=== PATIENT | female | born 1975 | race Caucasian/White ===

== ENCOUNTER 2020-08-05 07:29 | Inpatient (IN) ==
[2020-08-02 11:02] LABS: Basophils % 0.5 % (0.0-0.8); Eosinophils # 0.1 10*3/uL (0.0-0.87); Eosinophils % 1.2 % (0.00-10.9); Hematocrit 38.9 VOL% (35.7-47.0); Hemoglobin 12.9 GM/DL (12.0-16.0); Immature Granulocytes % 0.4 %; Immature Granulocytes Absolute 0.03 #; Lymphocytes # 2.5 10*3/uL (1.4-4.0); Lymphocytes % 30.4 % (21.3-54.2); Mean Corpuscular HGB Conc 33.2 GM/DL (32-36); Mean Corpuscular Volume 83.3 FL (87-102); Mean Platelet Volume 10.3 FL (9.6-12.0); Monocytes % 4.9 % (1.7-12.7); Neutrophils % 62.6 % (38.7-73.9); Platelet Count 361 T/CUMM (130-400); Red Blood Count 4.67 MC/CUMM (3.8-5.5); Red Cell Distribution Width 13.6 % (9.3-17.3); White Blood Count 8.2 T/CUMM (4-12)
[2020-08-02 11:25] LABS: Calcium 8.7 MG/DL (8.5-10.1); Osmolality,Calculated 270.8 MOS/KG (273-304)
[~2020-08-05 07:29] MED LIST: ALVIMOPAN 12 MG CAPSULE ONE
[2020-08-05] MEDS ORDERED: LACTATED RINGERS 1,000 ML IV SCH (09:00)
[2020-08-05] MEDS ORDERED: FAMOTIDINE 20 MG TABLET PO ONE (09:42)
[2020-08-05] MEDS ORDERED: DIAZEPAM 5 MG TABLET PO ONE (09:42)
[2020-08-05] MEDS ORDERED: ALVIMOPAN 12 MG CAPSULE PO ONE (10:00)
[2020-08-05] MEDS ORDERED: MIDAZOLAM 2 MG/2 ML VIAL ONE (12:23)
[2020-08-05] MEDS ORDERED: TISSUE ADHESIVE 1 EACH APPLICATOR TOP ONE (13:49)
[2020-08-05] MEDS ORDERED: INDOCYANINE GREEN 25 MG VIAL IV ONE (13:50)
[2020-08-05] MEDS ORDERED: fentaNYL 100 MCG/2 ML VIAL ONE (14:05)
[2020-08-05] MEDS ORDERED: ROCURONIUM 50 MG/5 ML VIAL IV ONE ×2 (15:09→16:12)
[2020-08-05] MEDS ORDERED: DESFLURANE 1 UNIT/15 MINUTE INH ONE ×3 (16:12→18:07)
[2020-08-05] MEDS ORDERED: propofoL 200 MG/20 ML VIAL IV ONE (16:13)
[2020-08-05] MEDS ORDERED: LIDOCAINE 2% 5 ML VIAL ONE (16:13)
[2020-08-05] MEDS ORDERED: GLYCOPYRROLATE 0.4 MG/2 ML VIAL ONE (16:13)
[2020-08-05] MEDS ORDERED: DEXAMETHASONE 4 MG/1 ML VIAL ONE (16:13)
[2020-08-05] MEDS ORDERED: SUCCINYLCHOLINE 200 MG/10 ML VIAL ONE (16:13)
[2020-08-05] MEDS ORDERED: SUGAMMADEX 200 MG/2 ML VIAL IV ONE (16:15)
[2020-08-05] MEDS ORDERED: ONDANSETRON 4 MG/2 ML VIAL IV PRN ×2 (17:44→18:27)
[2020-08-05] MEDS ORDERED: MORPHINE 4 MG/1 ML VIAL IV PRN (17:44)
[2020-08-05] MEDS ORDERED: ONDANSETRON 4 MG/2 ML VIAL ONE (18:08)
[2020-08-05] MEDS ORDERED: LACTATED RINGERS 1,000 ML IV ONE (18:08)
[2020-08-05] MEDS ORDERED: ACETAMINOPHEN INJ 1,000 MG in PREMIX 1 EACH IV ONE (18:10)
[2020-08-05] MEDS ORDERED: ACETAMINOPHEN 1,000 MG/100 ML VIAL IV ONE (18:12)
[2020-08-05] MEDS ORDERED: MORPHINE 10 MG/1 ML VIAL ONE (18:28)
[2020-08-05] MEDS: MORPHINE 10 MG/1 ML VIAL IV PRN ×2 (18:35→18:42)
[2020-08-05] MEDS ORDERED: INFLUENZA VIRUS VACCINE 0.5 ML SYRINGE IM ONE (19:36)
[2020-08-05] MEDS: DEXTROSE 5% LACTATED RINGERS 1,000 ML IV SCH (21:34)
[2020-08-06 06:04] LABS: Basophils % 0.1 % (0.0-0.8); Hematocrit 35.4 VOL% (35.7-47.0); Hemoglobin 11.7 GM/DL (12.0-16.0); Immature Granulocytes % 0.2 %; Immature Granulocytes Absolute 0.03 #; Lymphocytes # 1.2 10*3/uL (1.4-4.0); Mean Corpuscular HGB Conc 33.1 GM/DL (32-36); Mean Corpuscular Volume 82.9 FL (87-102); Mean Platelet Volume 10.2 FL (9.6-12.0); Monocytes % 3.6 % (1.7-12.7); Neutrophils % 87.1 % (38.7-73.9); Platelet Count 352 T/CUMM (130-400); Red Blood Count 4.27 MC/CUMM (3.8-5.5); Red Cell Distribution Width 13.8 % (9.3-17.3); White Blood Count 13.8 T/CUMM (4-12)
[2020-08-06 06:31] LABS: Calcium 8.4 MG/DL (8.5-10.1); Osmolality,Calculated 275.5 MOS/KG (273-304)
[2020-08-06] MEDS: hydroCHLOROthiazide 12.5 MG CAPSULE PO SCH (08:46)
[2020-08-06] MEDS: DEXTROSE 5% LACTATED RINGERS 1,000 ML IV SCH ×2 (08:47→17:02)
[2020-08-07] MEDS: DEXTROSE 5% LACTATED RINGERS 1,000 ML IV SCH (00:21)
[2020-08-07] MEDS: hydroCHLOROthiazide 12.5 MG CAPSULE PO SCH (08:51)
[2020-08-07 15:52] VITALS: BP 134/81
== END 2020-08-07 16:46 | disposition home or self-care (01) | DRG 330 ==
LOC: N.OR 07:29 → N.SDSINP 07:29 → EDSDCBED 19:07 → N.3E 19:07 → N.OR 08-07 16:46 → N.3E 08-08 12:31
PROVIDERS: ADMIT Surgery; ATTEND Surgery